=== PATIENT | female | born 1970 ===

== ENCOUNTER 2020-02-06 15:43 | Inpatient (IN) | payer OTHER ==
[2020-02-06] MEDS ORDERED: MORPHINE SULFATE 4 MG/ML SYRINGE IVP PRN (18:05)
[2020-02-06] MEDS: SODIUM CHLORIDE 0.9% 1,000 ML IV SCH (18:35)
[2020-02-06] MEDS: PIPERACILLIN-TAZOBACTAM 3.375 GM in SODIUM CHLORIDE 0.9% 100 ML IVPB SCH (19:02)
--- NOTE | 2020-02-06 19:04 | P.GSCN ---
History of Present Illness Consult date: 02/06/20 History of present illness: 49-year-old female that presents as a direct admission from an outside facility secondary to ruptured appendicitis. She states that she has had a right lower quadrant pain for 2 days and it has been worsening in nature. She complains of nausea and emesis episodes. She states she has never had pain like this previously. On workup at the outside facility, the patient did have a CT of the abdomen and pelvis that revealed a ruptured appendicitis. She denies having previous abdominal surgery. She does complain of febrile episodes. She has no additional complaints at this time. Review of Systems All systems: negative Medications and Allergies Allergies Allergy/AdvReac Type Severity Reaction Status Date / Time Penicillins Allergy Itching Verified 02/06/20 18:01 Surgical - Exam Osteopathic Statement: *. No significant issues noted on an osteopathic structural exam other than those noted in the History and Physical/Consult. Vital Signs Temp Pulse Resp BP Pulse Ox 100.8 F H 97 18 120/70 95 02/06/20 17:32 02/06/20 17:32 02/06/20 17:32 02/06/20 17:32 02/06/20 17:32 - General well nourished, no distress - Eyes PERRL - ENT normal mucosa, no hearing loss - Neck trachea midline - Respiratory No difficulty with respiration - Abdomen Soft, tender to palpation in the right lower quadrant, nondistended - Psychiatric oriented to time, oriented to person, oriented to place Assessment and Plan Plan: 49-year-old female with ruptured appendicitis - CT of the abdomen and pelvis that was performed at the outside facility was reviewed. It does appear that the patient has inflammatory changes and some pockets of air around the appendix, indicative of ruptured appendicitis. There did not appear to be a drainable abscess collection at this time. I did have a long discussion with the patient about surgical planning. Laparoscopic appendectomy will be attempted. The patient does understand that she is at high risk of requiring an open procedure. We will keep the patient nothing by mouth for now. IV antibiotics have started. Further recommendations after surgical procedure.
[2020-02-06] MEDS ORDERED: ACETAMINOPHEN TAB 325 MG TAB PO STA (19:38)
[2020-02-06] MEDS ORDERED: BUPIVACAIN-EPI 0.25%-1:200,000 30 ML VIAL SQ ONE (21:58)
[2020-02-06] MEDS ORDERED: LIDOCAINE 1% INJ 10MG/ML (20 ML MDV) ONE (21:59)
[2020-02-06] MEDS ORDERED: fentaNYL (PF) 50 MCG/ML 2 ML AMP ONE (21:59)
[2020-02-06] MEDS ORDERED: NEOSTIGMINE 1 MG/ML 10 ML VIAL ONE (21:59)
[2020-02-06] MEDS ORDERED: SUCCINYLCHOLINE CHLORIDE 100 MG/5 ML SYR IV ONE (21:59)
[2020-02-06] MEDS ORDERED: MIDAZOLAM 2 MG/2 ML VIAL ONE (21:59)
[2020-02-06] MEDS ORDERED: DEXAMETHASONE SOD PHOSPHATE 10 MG/ML 1 ML VIAL ONE (21:59)
[2020-02-06] MEDS ORDERED: HYDROmorphone (PF) 1 MG/ML ONE (21:59)
[2020-02-06] MEDS ORDERED: SODIUM CHLORIDE 0.9% 1,000 ML IV ONE (21:59)
[2020-02-06] MEDS ORDERED: ONDANSETRON 4 MG/2 ML VIAL ONE (21:59)
[2020-02-06] MEDS ORDERED: PROPOFOL 10 MG/ML 20 ML VIAL IV ONE (21:59)
[2020-02-06] MEDS ORDERED: PHENYLEPHRINE-0.9% NACL SYG 1 MG/10 ML SYRINGE ONE (21:59)
[2020-02-06] MEDS ORDERED: ROCURONIUM BROMIDE 10 MG/ML 5 ML VIAL IV ONE (21:59)
[2020-02-06] MEDS ORDERED: GLYCOPYRROLATE 0.2 MG/ML 2 ML VIAL ONE (21:59)
[2020-02-06] MEDS ORDERED: LACTATED RINGERS 1,000 ML IV ONE (23:12)
[2020-02-06] MEDS ORDERED: HYDROmorphone 0.5 MG/0.5 ML SYRINGE IVP PRN (23:32)
[2020-02-06] MEDS ORDERED: NALOXONE 0.4 MG/ML 1 ML VIAL IV PRN (23:32)
[2020-02-06] MEDS ORDERED: HYDROcodone/APAP 5-325MG 1 EACH TAB PO PRN (23:32)
[2020-02-06] MEDS ORDERED: ACETAMINOPHEN TAB 325 MG TAB PO PRN (23:41)
--- NOTE | 2020-02-06 23:41 | P.OP ---
Date of Procedure: 02/06/20 Preoperative Diagnosis: Ruptured appendicitis Postoperative Diagnosis: Ruptured appendicitis Procedure(s) Performed: Laparoscopic appendectomy Intra-abdominal washout Anesthesia: JOLLY Surgeon: Shimon Beltran Pathology: other (Appendix and contents) Condition: stable Disposition: floor Indications for Procedure: 49-year-old female presented to the hospital as a direct admission from an outside facility secondary to concern for ruptured appendicitis. Plan was for appendectomy secondary to this finding. Patient was explained the risks, benefits and alternatives to the procedure and did provide consent prior to attending the operating suite. Operative Findings: Ruptured appendix Purulent discharge throughout the abdomen, specifically in the pelvis, right lower quadrant and right upper quadrant Description of Procedure: The patient was brought into the operating suite and placed in supine position on the operating table. Sedation was provided by anesthesia and the patient underwent endotracheal intubation. Cuellar catheter was placed. The patient was prepped and draped in regular sterile fashion. An incision was made over the umbilicus at a palpable site of an umbilical hernia. Dissection was carried through the hernia site into the internal abdominal cavity. 12 mm port was placed and pneumoperitoneum was achieved. 2 additional 5 mm ports were placed. One was placed in the suprapubic region and one was placed in the left lower quadrant. On immediate examination, significant amount of purulent material was noted within the pelvis and in the right lower quadrant. The patient was then positioned appropriately. Dissection was carried and the appendix was visualized. It was densely adhered to surrounding structures and was bluntly dissected. The ruptured site of the appendix was noted at the proximal portion. Appendicolith was also noted as it had leaked out of the perforated site. A window was created between the appendix and the mesoappendix and LigaSure device was used to ligate the mesoappendix. Due to the proximal location of the rupture, further dissection was carried to be able to staple off the base of the appendix. 60 mm purple Endo CHEO stapler was used to ligate the appendix from the cecum. The appendix and the appendicolith were then placed in an Endo Catch bag and removed from the abdomen. Hemostasis was noted to be maintained. Approximately 5 L of normal saline was used to irrigate the entire abdomen and was suctioned. A MARTIN drain was then placed in the pelvis and along the right colic gutter and exited from the left lower quadrant incision site. This was secured. The umbilical incision site fascia was then closed under direct visualization using an 0 Vicryl suture and Callum-Miguel Angel device. Pneumoperitoneum was then released and incision sites were closed with 4-0 Vicryl subcutaneous suture. The patient was awakened in the operating suite and taken to postanesthesia care unit in stable condition.
[2020-02-07] MEDS: HEPARIN SODIUM,PORCINE 5,000 UNIT/ML 1 ML VIAL SQ SCH ×4 (00:34→23:00)
[2020-02-07] MEDS: KETOROLAC 30 MG/ML 1 ML VIAL IVP SCH ×5 (00:34→23:00)
[2020-02-07] MEDS: PIPERACILLIN-TAZOBACTAM 3.375 GM in SODIUM CHLORIDE 0.9% 100 ML IVPB SCH ×3 (02:52→18:42)
[2020-02-07] MEDS: SODIUM CHLORIDE 0.9% 1,000 ML IV SCH ×3 (02:53→23:00)
[2020-02-07] MEDS: PANTOPRAZOLE 40 MG/10 ML VIAL IV SCH (08:08)
--- NOTE | 2020-02-07 09:02 | P.PN ---
Subjective Progress Note Date: 02/07/20 Patient seen and examined at bedside. States she is feeling slightly better today. Tolerating clear liquid diet. Cuellar catheter in place. MARTIN drain in place. No acute events. Objective - Vital Signs Vital signs: Vital Signs Temp 97.9 F 02/07/20 07:00 Pulse 75 02/07/20 07:00 Resp 17 02/07/20 07:00 BP 107/68 02/07/20 07:00 Pulse Ox 96 02/07/20 06:00 Intake & Output 02/06/20 02/07/20 02/07/20 18:59 06:59 18:59 Intake Total 1000 Output Total 1149 40 Balance -149 -40 Weight 131.5 kg Intake: IV 800 Oral 200 Output: Drainage 130 40 Left Lower Abdomen 130 40 Urine 1000 Estimated Blood Loss 19 Other: Voiding Method Indwelling Catheter Indwelling Catheter - Constitutional General appearance: Present: cooperative, no acute distress - Respiratory Details: No difficulty with respiration - Gastrointestinal Gastrointestinal Comment(s): Soft, appropriate tenderness, nondistended, no rebound, guarding, incision sites are clean, dry and intact, MARTIN drain in place - Musculoskeletal Musculoskeletal: Present: generalized weakness - Psychiatric Psychiatric: Present: A&O x's 3 Assessment and Plan Plan: 49-year-old female postoperative day #1, laparoscopic appendectomy and intra- abdominal washout - Continue MARTIN drain. Currently purulent drainage is noted. 40 mL overnight. - Continue clear liquid diet - Discontinue Cuellar catheter - Increase activity - Incentive spirometry - Consult has been placed to infectious disease secondary to significant amount of purulence within the abdomen and ruptured appendicitis
[2020-02-07 09:03] LABS: Basophils % (A) 0 %; Eosinophils % (A) 0 %; HCT 36.1 % (34.0-46.0); HGB 12.2 gm/dL (11.4-16.0); Lymphocytes # (A) 0.6 k/uL (1.0-4.8); Lymphocytes % (A) 4 %; MCH 31.4 pg (25.0-35.0); MCHC 33.7 g/dL (31.0-37.0); MCV 93.2 fL (80.0-100.0); Mean Platelet Volume 7.2; Monocytes # (A) 0.4 k/uL (0-1.0); Monocytes % (A) 3 %; Neutrophils # (A) 14.5 k/uL (1.3-7.7); Neutrophils % (A) 92 %; Platelet Count 242 k/uL (150-450); RBC 3.87 m/uL (3.80-5.40); RDW 12.8 % (11.5-15.5); WBC 15.7 k/uL (3.8-10.6)
[2020-02-07 09:11] LABS: ALT 11 U/L (4-34); AST 17 U/L (14-36); African American GFR (CKD) >90 (>60 ml/min/1.73 sqM); Albumin 3.4 g/dL (3.5-5.0); Alkaline Phosphatase 38 U/L (38-126); Anion Gap 8 mmol/L; Blood Urea Nitrogen 16 mg/dL (7-17); Calcium 7.9 mg/dL (8.4-10.2); Carbon Dioxide 24 mmol/L (22-30); Chloride 102 mmol/L (98-107); Glucose 140 mg/dL (74-99); Non-African American GFR(CKD) 79 (>60 ml/min/1.73 sqM); Potassium 3.9 mmol/L (3.5-5.1); Sodium 134 mmol/L (137-145); Total Bilirubin 0.6 mg/dL (0.2-1.3); Total Protein 6.4 g/dL (6.3-8.2)
[2020-02-07] MEDS: ONDANSETRON 4 MG/2 ML VIAL IVP PRN ×2 (09:41→16:31)
[2020-02-07] MEDS ORDERED: TRIMETHOBENZAMIDE 100 MG/ML 2 ML VIAL IM STA (13:55)
--- NOTE | 2020-02-07 18:10 | P.HPIM ---
History of Present Illness H&P Date: 02/06/20 Chief Complaint: Abdominal pain Patient is a 49-year-old female without significant past medical history initially presented to [facility] with complaints of abdominal pain started since Sunday and has been getting worse. Abdominal pain is mainly right lower quadrant assist with nausea and vomiting. Due to worsening abdominal pain patient initially presented to [facility] where she had CT of the abdominal pelvis was done which showed ruptured appendicitis without any fluid collection surrounding. Patient was transferred to [facility] for general surgery evaluation. Patient was febrile with T-max of 100.8 and tachycardic. Laboratory data and other studies reviewed from outside hospital. Denied any complaints of chest pain or shortness of breath. No headache or dizziness or lightheadedness. No recent illnesses no diarrhea. No recent travel. Review of Systems Constitutional: Patient denies any fever or chills . No generalized weakness or weight loss. Abdomen: Patient does have right lower quadrant abdominal pain is with nausea vomiting and no diarrhea.. Cardiovascular: Patient denies any chest pain or short of breath no palpitations. Respiratory: patient denied any cough is from production. No shortness of breath Neurologic: Patient denied any numbness or tingling headache. Musculoskeletal: Patient denies any complaints of joint swelling or deformity. Skin: Negative Psychiatric: Negative Endocrine: No heat or cold intolerance. No recent weight gain. Genitourinary: No dysuria or hematuria. All other 14 point ROS negative except the above Past Medical History Past Medical History: No Reported History History of Any Multi-Drug Resistant Organisms: None Reported Additional Past Surgical History / Comment(s): right askew carpal tunnel Past Anesthesia/Blood Transfusion Reactions: No Reported Reaction Past Psychological History: No Psychological Hx Reported Smoking Status: Never smoker Medications and Allergies Home Medications Medication Instructions Recorded Confirmed Type No Known Home Medications 02/06/20 02/06/20 History Allergies Allergy/AdvReac Type Severity Reaction Status Date / Time Penicillins Allergy Itching Verified 02/06/20 18:01 Physical Exam Vitals: Vital Signs Temp Pulse Pulse Resp BP BP Pulse Ox 02/06/20 19:30 100.4 F H 106 H 20 104/63 94 L 02/06/20 17:32 100.8 F H 97 18 120/70 95 Intake and Output 02/06/20 02/06/20 02/07/20 14:59 22:59 06:59 Other: Weight 131.5 kg PHYSICAL EXAMINATION: Patient is lying in the bed comfortably, no acute distress, awake alert and oriented.. HEENT: Normocephalic. Neck is supple. Pupils reactive. Nostrils clear. Oral cavity is moist. Ears reveal no drainage. Neck reveals no JVD, carotid bruits, or thyromegaly. CHEST EXAMINATION: Trachea is central. Symmetrical expansion. Lung cruz clear to auscultation and percussion. CARDIAC: Normal S1, S2 with no gallops. No murmurs ABDOMEN: Soft. Right lower quadrant tenderness. No guarding no rigidity. Bowel sounds present. No organomegaly. No abdominal bruits. Extremities: reveal no edema. No clubbing or cyanosis Neurologically awake, alert, oriented x3 with well-coordinated movements. No focal deficits noted Skin: No rash or skin lesions. Psychiatric: Coperative. Nonsuicidal Musculoskeletal: No joint swelling or deformity. Normal range of motion. Results CBC & Chem 7: 02/07/20 07:57 02/07/20 07:57 Thrombosis Risk Factor Assmnt - DVT/VTE Prophylaxis DVT/VTE Prophylaxis: Pharmacologic Prophylaxis ordered - Choose All That Apply Any of the Below Risk Factors Present?: No Assessment and Plan Assessment: Acute appendicitis ruptured with possible surrounding peritonitis. Sepsis secondary to above Morbid obesity BMI 46.8 DVT prophylaxis. Plan: Patient will be continued on IV hydration and antibiotics in the form of Zosyn. Stat consult to Gen. surgery was placed. Continue pain management and follow closely. Further recommendations based on the clinical course. Time with Patient: Greater than 30
--- NOTE | 2020-02-07 18:13 | P.PN ---
Subjective Progress Note Date: 02/07/20 Principal diagnosis: Acute ruptured appendicitis Patient is a 49-year-old female without significant past medical history initially presented to [facility] with complaints of abdominal pain started since Sunday and has been getting worse. Abdominal pain is mainly r ight lower quadrant assist with nausea and vomiting. Due to worsening abdominal pain patient initially presented to [facility] where she had CT of the abdominal pelvis was done which showed ruptured appendicitis without any fluid collection surrounding. Patient was transferred to [facility] for general surgery evaluation. Patient was febrile with T-max of 100.8 and tachyc ardic. Laboratory data and other studies reviewed from outside hospital. Denied any complaints of chest pain or shortness of breath. No headache or dizziness or lightheadedness. No recent illnesses no diarrhea. No recent travel. 02/07/2020 Patient is currently lying in the bed comfortably. Abdominal pain is much improved. Tolerating clear liquids. Patient has been afebrile. WBC 15.7 today. General surgery is on board. Patient denied any complaints of chest pain or shortness of breath. No nausea vomiting or diarrhea. No headache or dizziness or lightheadedness. No cough or sputum production. Current medications reviewed. Objective - Vital Signs Vital signs: Vital Signs Temp 97.9 F 02/07/20 14:43 Pulse 85 02/07/20 14:43 Resp 19 02/07/20 14:43 BP 109/72 02/07/20 14:43 Pulse Ox 95 02/07/20 14:43 Intake & Output 02/06/20 02/07/20 02/07/20 18:59 06:59 18:59 Intake Total 1000 Output Total 1149 420 Balance -149 -420 Weight 131.5 kg Intake: IV 800 Oral 200 Output: Drainage 130 120 Left Lower Abdomen 130 120 Urine 1000 Emesis 300 Estimated Blood Loss 19 Other: Voiding Method Indwelling Catheter Indwelling Catheter # Voids 0 - Exam PHYSICAL EXAMINATION: Patient is lying in the bed comfortably, no acute distress, awake alert and oriented.. HEENT: Normocephalic. Neck is supple. Pupils reactive. Nostrils clear. Oral cavity is moist. Ears reveal no drainage. Neck reveals no JVD, carotid bruits, or thyromegaly. CHEST EXAMINATION: Trachea is central. Symmetrical expansion. Bibasilar diminished air entry. Lung cruz clear to auscultation and percussion. CARDIAC: Normal S1, S2 with no gallops. No murmurs ABDOMEN: Soft. Mild tenderness of the surgical site. Bowel sounds normal. No organomegaly. No abdominal bruits. Extremities: reveal no edema. No clubbing or cyanosis Neurologically awake, alert, oriented x3 with well-coordinated movements. No focal deficits noted Skin: No rash or skin lesions. Psychiatric: Coperative. Nonsuicidal Musculoskeletal: No joint swelling or deformity. Normal range of motion. - Labs CBC & Chem 7: 02/07/20 07:57 02/07/20 07:57 Labs: Abnormal Lab Results - Last 24 Hours (Table) 02/07/20 02/07/20 Range/Units 07:57 07:57 WBC 15.7 H (3.8-10.6) k/uL Neutrophils # 14.5 H (1.3-7.7) k/uL Lymphocytes # 0.6 L (1.0-4.8) k/uL Sodium 134 L (137-145) mmol/L Glucose 140 H (74-99) mg/dL Calcium 7.9 L (8.4-10.2) mg/dL Albumin 3.4 L (3.5-5.0) g/dL Assessment and Plan Assessment: Acute appendicitis ruptured status post emergent laparoscopic appendectomy and intraoperative or short period. . POD# 1. Sepsis secondary to above Morbid obesity BMI 46.8 DVT prophylaxis. Plan: Patient will be continued on IV hydration and antibiotics in the form of Zosy Patient was started on liquid diet and advance as tolerated. General surgery is following. Follow-up culture reports. ID consult. Encourage ambulation and incentive spirometry. Continue pain management and follow closely. Further recommendations based on the clinical course. Time with Patient: Greater than 30
--- NOTE | 2020-02-08 01:36 | P.CONS ---
History of Present Illness - Reason for Consult Consult date: 02/07/20 Ruptured appendicitis Requesting physician: Shimon Beltran - Chief Complaint Abdominal pain 2 days - History of Present Illness Patient is a 49-year-old female presented to the [facility] with a chief complaints of abdominal pain. His urination that started on Sunday patient did have been mostly in the right lower quadrant area patient describing the pain to be more of a sharp nature that has gradually increased in intensity and almost 10 out of 10 with Gertrude nausea and vomiting denies any diarrhea or constipation did have some fever with these symptoms the patient was evaluated outside facility patient had did have a CT of abdominal and pelvis,that was suggestive of ruptured appendicitis subsequently the patient has been transferred to [facility], on arrival to this facility the patient did have a fever 100.8F patient was tachycardic did have elevated white count, general surgery saw the patient and the patient was taken to the OR last night patient is status post laparoscopic appendectomy and abdominal washou t unfortunately no cultures and the patient was started on Zosyn . Currently the patient did have penicillin ALLERGY however has tolerated so far and infectious disease was consulted for further management of antibiotic therapy Review of Systems Positive point has been mentioned in the HPI rest of the systems are negative Past Medical History Past Medical History: No Reported History History of Any Multi-Drug Resistant Organisms: None Reported Additional Past Surgical History / Comment(s): right askew carpal tunnel Past Anesthesia/Blood Transfusion Reactions: No Reported Reaction Past Psychological History: No Psychological Hx Reported Smoking Status: Never smoker Medications and Allergies Home Medications Medication Instructions Recorded Confirmed Type No Known Home Medications 02/06/20 02/06/20 History Allergies Allergy/AdvReac Type Severity Reaction Status Date / Time Penicillins Allergy Itching Verified 02/06/20 18:01 Physical Exam Vitals: Vital Signs Temp Pulse Pulse Pulse Resp BP BP 02/07/20 07:00 97.9 F 75 17 107/68 02/07/20 06:00 98.1 F 78 20 99/58 02/07/20 04:17 97.7 F 80 20 109/61 02/07/20 02:00 97.8 F 81 20 99/61 02/07/20 00:25 98.5 F 84 20 115/69 02/07/20 00:16 78 16 110/58 02/07/20 00:00 76 16 107/57 02/06/20 23:45 75 16 114/57 02/06/20 23:35 98.2 F 79 16 120/57 02/06/20 19:30 100.4 F H 106 H 20 104/63 02/06/20 17:32 100.8 F H 97 18 120/70 Pulse Ox 02/07/20 07:00 02/07/20 06:00 96 02/07/20 04:17 98 02/07/20 02:00 96 02/07/20 00:25 94 L 02/07/20 00:16 93 L 02/07/20 00:00 99 02/06/20 23:45 99 02/06/20 23:35 93 L 02/06/20 19:30 94 L 02/06/20 17:32 95 Intake and Output 02/06/20 02/07/20 02/07/20 22:59 06:59 14:59 Intake Total 700 300 Output Total 1149 40 Balance 700 -849 -40 Intake: IV 700 100 Oral 200 Output: Drainage 130 40 Left Lower Abdomen 130 40 Urine 1000 Estimated Blood Loss 19 Other: Voiding Method Indwelling Catheter Indwelling Catheter Weight 131.5 kg GENERAL DESCRIPTION: Middle-aged female lying in bed, no distress. No tachypnea or accessory muscle of respiration use. HEENT: Shows Pallor , no scleral icterus. Oral mucous membrane is dry. No pharyn geal erythema or thrush NECK: Trachea central, no thyromegaly. LUNGS: Unlabored breathing. Clear to auscultation anteriorly. No wheeze or crackle. HEART: S1, S2, regular rate and rhythm. No loud murmur ABDOMEN: Soft, mild right lower quadrant tenderness , guarding or rigidity, no organomegaly EXTREMITIES: No edema of feet. SKIN: No rash, no masses palpable. NEUROLOGICAL: The patient is awake, alert, oriented x3, mood and affect normal. Results CBC & Chem 7: 02/07/20 07:57 02/07/20 07:57 Labs: Abnormal Lab Results - Last 24 Hours (Table) 02/07/20 02/07/20 Range/Units 07:57 07:57 WBC 15.7 H (3.8-10.6) k/uL Neutrophils # 14.5 H (1.3-7.7) k/uL Lymphocytes # 0.6 L (1.0-4.8) k/uL Sodium 134 L (137-145) mmol/L Glucose 140 H (74-99) mg/dL Calcium 7.9 L (8.4-10.2) mg/dL Albumin 3.4 L (3.5-5.0) g/dL Assessment and Plan Assessment: 1-patient presented to hospital with sepsis this patient who did have fever tachycardia and elevated white count source is ruptured appendicitis in this patient who has not been on antibiotics in the recent past. The likely sensitive pathogen such as E. coli and related gram-negative thomas 2-patient with a history of penicillin ALLERGY however has tolerated Zosyn without any problems, clinically doubt true penicillin ALLERGY (1) Sepsis Current Visit: Yes Status: Acute Code(s): A41.9 - SEPSIS, UNSPECIFIED ORGANISM SNOMED Code(s): 53291689 (2) Ruptured appendicitis Current Visit: Yes Status: Acute Code(s): K35.32 - ACUTE APPENDICITIS WITH PERF AND LOC PERITONITIS, W/O ABSCS SNOMED Code(s): 89514879 Plan: 1-Zosyn 3.375 g every 8 hour 2-gentle IV fluids and symptomatic treatment of her nausea and pain We will follow on clinical condition and cultures to further adjust medication if needed Thank you for this consultation will follow this patient with you Time with Patient: Greater than 30
[2020-02-08] MEDS: PIPERACILLIN-TAZOBACTAM 3.375 GM in SODIUM CHLORIDE 0.9% 100 ML IVPB SCH ×3 (02:44→18:04)
[2020-02-08] MEDS: KETOROLAC 30 MG/ML 1 ML VIAL IVP SCH ×4 (05:14→23:23)
[2020-02-08 07:44] LABS: Basophils % (A) 0 %; Eosinophils # (A) 0.1 k/uL (0-0.7); Eosinophils % (A) 1 %; HCT 30.9 % (34.0-46.0); HGB 10.2 gm/dL (11.4-16.0); Lymphocytes # (A) 0.9 k/uL (1.0-4.8); Lymphocytes % (A) 10 %; MCH 30.8 pg (25.0-35.0); MCHC 33.2 g/dL (31.0-37.0); Mean Platelet Volume 7.1; Monocytes # (A) 0.3 k/uL (0-1.0); Monocytes % (A) 4 %; Neutrophils # (A) 7.1 k/uL (1.3-7.7); Neutrophils % (A) 84 %; Platelet Count 215 k/uL (150-450); RBC 3.32 m/uL (3.80-5.40); RDW 12.8 % (11.5-15.5); WBC 8.5 k/uL (3.8-10.6)
[2020-02-08 08:12] LABS: African American GFR (CKD) >90 (>60 ml/min/1.73 sqM); Anion Gap 5 mmol/L; Blood Urea Nitrogen 13 mg/dL (7-17); Calcium 7.7 mg/dL (8.4-10.2); Carbon Dioxide 24 mmol/L (22-30); Chloride 109 mmol/L (98-107); Glucose 122 mg/dL (74-99); Non-African American GFR(CKD) 90 (>60 ml/min/1.73 sqM); Potassium 3.7 mmol/L (3.5-5.1); Sodium 138 mmol/L (137-145)
--- NOTE | 2020-02-08 08:34 | P.PN ---
Subjective Progress Note Date: 02/08/20 Patient seen and examined at bedside. States she is feeling better today. Complains of one episode of emesis yesterday, which she believes was secondary to narcotic pain medication. She states that she has had bowel movements and flatus. MARTIN drain in place with continued purulent output. Objective - Vital Signs Vital signs: Vital Signs Temp 98.6 F 02/08/20 02:06 Pulse 81 02/08/20 02:06 Resp 18 02/08/20 02:06 BP 108/69 02/08/20 02:06 Pulse Ox 95 02/08/20 02:06 Intake & Output 02/07/20 02/08/20 02/08/20 18:59 06:59 18:59 Output Total 420 80 Balance -420 -80 Output: Drainage 120 80 Left Lower Abdomen 120 80 Emesis 300 Other: Voiding Method Indwelling Catheter # Voids 0 5 - Constitutional General appearance: Present: cooperative, no acute distress - EENT Eyes: Present: PERRLA - Gastrointestinal Gastrointestinal Comment(s): Soft, appropriate tenderness, nondistended, no rebound, no guarding, incision sites are clean, dry and intact, MARTIN drain in place with purulent output - Musculoskeletal Musculoskeletal: Present: generalized weakness - Psychiatric Psychiatric: Present: A&O x's 3 - Labs CBC & Chem 7: 02/08/20 07:13 02/08/20 07:13 Labs: Abnormal Lab Results - Last 24 Hours (Table) 02/07/20 02/07/20 02/08/20 Range/Units 07:57 07:57 07:13 WBC 15.7 H (3.8-10.6) k/uL RBC 3.32 L (3.80-5.40) m/uL Hgb 10.2 L (11.4-16.0) gm/dL Hct 30.9 L (34.0-46.0) % Neutrophils # 14.5 H (1.3-7.7) k/uL Lymphocytes # 0.6 L 0.9 L (1.0-4.8) k/uL Sodium 134 L (137-145) mmol/L Chloride (98-107) mmol/L Glucose 140 H (74-99) mg/dL Calcium 7.9 L (8.4-10.2) mg/dL Albumin 3.4 L (3.5-5.0) g/dL 02/08/20 Range/Units 07:13 WBC (3.8-10.6) k/uL RBC (3.80-5.40) m/uL Hgb (11.4-16.0) gm/dL Hct (34.0-46.0) % Neutrophils # (1.3-7.7) k/uL Lymphocytes # (1.0-4.8) k/uL Sodium (137-145) mmol/L Chloride 109 H (98-107) mmol/L Glucose 122 H (74-99) mg/dL Calcium 7.7 L (8.4-10.2) mg/dL Albumin (3.5-5.0) g/dL Assessment and Plan Plan: 49-year-old female postoperative day #2, laparoscopic appendectomy and intra-abd ominal washout - Continue MARTIN drain. Currently purulent drainage is noted. 80 mL overnight. - Patient has had bowel function, we will advance to a soft diet - Increase activity - Incentive spirometry - Continue antibiotics per infectious disease - Progressing slowly
[2020-02-08] MEDS: HEPARIN SODIUM,PORCINE 5,000 UNIT/ML 1 ML VIAL SQ SCH ×3 (09:14→23:24)
[2020-02-08] MEDS: SODIUM CHLORIDE 0.9% 1,000 ML IV SCH ×2 (09:14→23:23)
[2020-02-08] MEDS: PANTOPRAZOLE 40 MG/10 ML VIAL IV SCH (09:14)
--- NOTE | 2020-02-09 01:24 | P.PN ---
Subjective Progress Note Date: 02/08/20 Principal diagnosis: Acute ruptured appendicitis Patient is a 49-year-old female without significant past medical history initially presented to [facility] with complaints of abdominal pain started since Sunday and has been getting worse. Abdominal pain is mainly r ight lower quadrant assist with nausea and vomiting. Due to worsening abdominal pain patient initially presented to [facility] where she had CT of the abdominal pelvis was done which showed ruptured appendicitis without any fluid collection surrounding. Patient was transferred to [facility] for general surgery evaluation. Patient was febrile with T-max of 100.8 and tachyc ardic. Laboratory data and other studies reviewed from outside hospital. Denied any complaints of chest pain or shortness of breath. No headache or dizziness or lightheadedness. No recent illnesses no diarrhea. No recent travel. 02/07/2020 Patient is currently lying in the bed comfortably. Abdominal pain is much improved. Tolerating clear liquids. Patient has been afebrile. WBC 15.7 today. General surgery is on board. Patient denied any complaints of chest pain or shortness of breath. No nausea vomiting or diarrhea. No headache or dizziness or lightheadedness. No cough or sputum production. 02/08/2020 Patient is status post laparoscopic appendectomy due to ruptured appendix. Patient is currently sitting in the chair comfortably. No complaints of chest pain. Abdominal pain is better. MARTIN drain is still draining purulent fluid. Currently being continued on antibiotics in the form of Zosyn.. Patient was started on liquid diet and will be advanced as tolerated. General surgery and ID is on board. Patient has been afebrile. Leukocytosis improving. Current medications reviewed. Objective - Vital Signs Vital signs: Vital Signs Temp 97.8 F 02/08/20 07:00 Pulse 71 02/08/20 07:00 Resp 16 02/08/20 07:00 BP 113/71 02/08/20 07:00 Pulse Ox 96 02/08/20 07:00 Intake & Output 02/07/20 02/08/20 02/08/20 18:59 06:59 18:59 Output Total 420 80 Balance -420 -80 Output: Drainage 120 80 Left Lower Abdomen 120 80 Emesis 300 Other: Voiding Method Indwelling Catheter # Voids 0 5 - Exam PHYSICAL EXAMINATION: Patient is lying in the bed comfortably, no acute distress, awake alert and oriented.. HEENT: Normocephalic. Neck is supple. Pupils reactive. Nostrils clear. Oral cavity is moist. Ears reveal no drainage. Neck reveals no JVD, carotid bruits, or thyromegaly. CHEST EXAMINATION: Trachea is central. Symmetrical expansion. Bibasilar diminished air entry. Lung cruz clear to auscultation and percussion. CARDIAC: Normal S1, S2 with no gallops. No murmurs ABDOMEN: Soft. Mild tenderness of the surgical site. Bowel sounds normal. No organomegaly. No abdominal bruits. Extremities: reveal no edema. No clubbing or cyanosis Neurologically awake, alert, oriented x3 with well-coordinated movements. No focal deficits noted Skin: No rash or skin lesions. Psychiatric: Coperative. Nonsuicidal Musculoskeletal: No joint swelling or deformity. Normal range of motion. - Labs CBC & Chem 7: 02/08/20 07:13 02/08/20 07:13 Labs: Abnormal Lab Results - Last 24 Hours (Table) 02/08/20 02/08/20 Range/Units 07:13 07:13 RBC 3.32 L (3.80-5.40) m/uL Hgb 10.2 L (11.4-16.0) gm/dL Hct 30.9 L (34.0-46.0) % Lymphocytes # 0.9 L (1.0-4.8) k/uL Chloride 109 H (98-107) mmol/L Glucose 122 H (74-99) mg/dL Calcium 7.7 L (8.4-10.2) mg/dL Assessment and Plan Assessment: Acute appendicitis ruptured status post emergent laparoscopic appendectomy and intraoperative Washout. . POD# 2. Possible surrounding peritonitis. Sepsis secondary to above Morbid obesity BMI 46.8 DVT prophylaxis. Plan: Patient will be continued on IV hydration and antibiotics in the form of Zosy Patient was started on liquid diet and advance as tolerated. General surgery is following. Follow-up culture reports. ID on board. Encourage ambulation and incentive spirometry. Continue pain management and follow closely. Further recommendations based on the clinical course.
[2020-02-09] MEDS: PIPERACILLIN-TAZOBACTAM 3.375 GM in SODIUM CHLORIDE 0.9% 100 ML IVPB SCH ×3 (03:01→19:10)
[2020-02-09] MEDS: KETOROLAC 30 MG/ML 1 ML VIAL IVP SCH ×3 (05:49→18:01)
--- NOTE | 2020-02-09 06:43 | PN ---
PROGRESS NOTE DATE OF SERVICE: 02/08/2020 REASON FOR FOLLOWUP: Perforated appendicitis. INTERVAL HISTORY: Patient is currently afebrile. The patient is breathing comfortably. The patient denies having any chest pain or shortness of breath or cough. No further nausea, vomiting or diarrhea. PHYSICAL EXAMINATION: Blood pressure 114/76, pulse of 81, temperature 98.6. She is 98% on room air. General description is a middle-aged female lying in bed in no distress. RESPIRATORY SYSTEM: Unlabored breathing, clear to auscultation anteriorly. HEART: S1, S2. Regular rate and rhythm. ABDOMEN: Soft, no tenderness. LABS: Hemoglobin is 10.2, white count 8.5, creatinine 0.78. No cultures this admission. DIAGNOSTIC IMPRESSION AND PLAN: Patient with perforated appendicitis, status post appendectomy and abdominal washout. The patient white count normalized. Currently on Zosyn. Transition to oral Augmentin on discharge to finish a course of therapy and monitor clinical course closely. MMODL / IJN: [id number] /
[2020-02-09] MEDS: HEPARIN SODIUM,PORCINE 5,000 UNIT/ML 1 ML VIAL SQ SCH ×2 (07:23→16:36)
[2020-02-09] MEDS: PANTOPRAZOLE 40 MG/10 ML VIAL IV SCH (07:23)
[2020-02-09] MEDS: SODIUM CHLORIDE 0.9% 1,000 ML IV SCH (07:24)
--- NOTE | 2020-02-09 08:56 | P.PN ---
Subjective From records: Patient is a 49-year-old female without significant past medical history initially presented to [facility] with complaints of abdominal pain started since Sunday and has been getting worse. Abdominal pain is mainly right lower quadrant assist with nausea and vomiting. Due to worsening abdominal pain patient initially presented to [facility] where she had CT of the abdominal pelvis was done which showed ruptured appendicitis without any fluid collection surrounding. Patient was transferred to [facility] for general surgery evaluation. Patient was febrile with T-max of 100.8 and tachycardic. Laboratory data and other studies reviewed from outside hospital. Denied any complaints of chest pain or shortness of breath. No headache or dizziness or lightheadedness. No recent illnesses no diarrhea. No recent travel. 02/07/2020 Patient is currently lying in the bed comfortably. Abdominal pain is much improved. Tolerating clear liquids. Patient has been afebrile. WBC 15.7 today. General surgery is on board. Patient denied any complaints of chest pain or shortness of breath. No nausea vomiting or diarrhea. No headache or dizziness or lightheadedness. No cough or sputum production. 02/08/2020 Patient is status post laparoscopic appendectomy due to ruptured appendix. Patient is currently sitting in the chair comfortably. No complaints of chest pain. Abdominal pain is better. MARTIN drain is still draining purulent fluid. Currently being continued on antibiotics in the form of Zosyn.. Patient was started on liquid diet and will be advanced as tolerated. General surgery and ID is on board. Patient has been afebrile. Leukocytosis improving. Subjective 02/09/2020 This is a pleasant 49 years old female who presented on 02/05 for signs and symptoms of ruptured appendicitis status post laparoscopic appendectomy. Patient lying in bed not in distress, she is able to tolerate her solid diet with no nausea vomiting, her abdominal pain is controlled and she had some bowel movement this morning, it was loose. She still have the drain was cleared lit tle pinkish discharge of a direct amount. She sees Dr. Rodriguez at [facility] but she is not happy with her and she wants to switch her PCP Possible discharge in 24-48 hours by surgical team Objective - Vital Signs Vital signs: Vital Signs Temp 98.9 F 02/09/20 07:05 Pulse 74 02/09/20 07:05 Resp 17 06/22/20 07:05 BP 139/88 02/09/20 07:05 Pulse Ox 95 02/09/20 07:05 Intake & Output 02/08/20 02/09/20 02/09/20 18:59 06:59 18:59 Output Total 20 30 Balance -20 -30 Output: Drainage 20 30 Left Lower Abdomen 20 30 Other: # Voids 3 4 # Bowel Movements 2 - Exam GENERAL: The patient is alert and oriented x3, not in any acute distress. Well developed, well nourished. HEENT: Pupils are round and equally reacting to light. EOMI. No scleral icterus. No conjunctival pallor. Normocephalic, atraumatic. No pharyngeal erythema. No thyromegaly. CARDIOVASCULAR: S1 and S2 present. No murmurs, rubs, or gallops. PULMONARY: Chest is clear to auscultation, no wheezing or crackles. -ABDOMEN: Soft, nontender, nondistended, normoactive bowel sounds. No palpable organomegaly. Surgical wound is clean and dry. A drain is in place MUSCULOSKELETAL: No joint swelling or deformity. EXTREMITIES: No cyanosis, clubbing, or pedal edema. NEUROLOGICAL: Gross neurological examination did not reveal any focal deficits. SKIN: No rashes. no petechiae. - Labs CBC & Chem 7: 02/08/20 07:13 02/08/20 07:13 Assessment and Plan Assessment: Acute appendicitis ruptured status post emergent laparoscopic appendectomy and intraoperative Washout. . POD# 3. Possible surrounding peritonitis. Sepsis secondary to above Morbid obesity BMI 46.8 DVT prophylaxis. Plan: This is a pleasant 49 years old female who presents with ruptured appendix is status post surgical laparoscopic appendectomy. She remains on Zosyn and normal saline. Infectious disease on the case. Pain management and DVT prophylaxis. Surgical team Labs and medication were reviewed.. Continue same treatment. Continue with symptomatic treatment. Resume home medication. Monitor lytes and vitals. DVT and GI prophylaxis. Further recommendations of the clinical course of the patient DVT prophylaxis: Subcutaneous heparin GI Prophylaxis: Ppi Thank you for consulting us
--- NOTE | 2020-02-09 10:57 | P.PN ---
Subjective Progress Note Date: 02/09/20 Patient seen and examined at bedside. States she is feeling better today. Drainage from MARTIN drain was 80 cc overnight. It appears that drainage is much less purulent and more serosanguineous. Tolerating diet. Having bowel movements. Objective - Vital Signs Vital signs: Vital Signs Temp 98.9 F 02/09/20 07:05 Pulse 74 02/09/20 07:05 Resp 17 02/09/20 07:05 BP 139/88 02/09/20 07:05 Pulse Ox 95 02/09/20 07:05 Intake & Output 02/08/20 02/09/20 02/09/20 18:59 06:59 18:59 Output Total 20 30 45 Balance -20 -30 -45 Output: Drainage 20 30 45 Left Lower Abdomen 20 30 45 Other: # Voids 3 4 # Bowel Movements 2 - Constitutional General appearance: Present: cooperative, no acute distress - Gastrointestinal Gastrointestinal Comment(s): Incision sites are clean, dry and intact, MARTIN drain in place, nontender, nondistended, no rebound, no guarding - Psychiatric Psychiatric: Present: A&O x's 3 - Labs CBC & Chem 7: 02/08/20 07:13 02/08/20 07:13 Assessment and Plan Plan: 49-year-old female postoperative day #3, laparoscopic appendectomy and intra- abdominal washout - Continue MARTIN drain. 80 mL overnight. Much less purulent - Continue a soft diet - Increase activity - Incentive spirometry - Continue antibiotics per infectious disease - Progressing slowly - Likely discharge in 24 hours
--- NOTE | 2020-02-09 23:58 | PN ---
PROGRESS NOTE DATE OF SERVICE: 02/09/2020 REASON FOR FOLLOWUP: Perforated appendicitis. INTERVAL HISTORY: The patient is currently afebrile. Patient is breathing comfortably. Abdominal pain is currently controlled. No chest pain, shortness of breath or cough. No diarrhea. PHYSICAL EXAMINATION: Blood pressure 159/80 with a pulse of 79, temperature 97.5. She is 98% on room air. General description is a middle-aged female up in the chair in no distress. RESPIRATORY SYSTEM: Unlabored breathing, clear to auscultation anteriorly. HEART: S1, S2. Regular rate and rhythm. ABDOMEN: Soft, no tenderness. LABS: No new labs have been obtained today. White count normal as of yesterday. DIAGNOSTIC IMPRESSION AND PLAN: Patient with perforated appendicitis, status post appendectomy, abdominal washout. The patient seemed to have shown overall clinical improvement. Plan will be to finish therapy with antibiotic. Continue with Zosyn. Continue with supportive care. MMODL / IJN: [id number] /
[2020-02-10] MEDS: KETOROLAC 30 MG/ML 1 ML VIAL IVP SCH ×3 (00:11→11:30)
[2020-02-10] MEDS: HEPARIN SODIUM,PORCINE 5,000 UNIT/ML 1 ML VIAL SQ SCH ×2 (00:12→10:12)
[2020-02-10] MEDS: PIPERACILLIN-TAZOBACTAM 3.375 GM in SODIUM CHLORIDE 0.9% 100 ML IVPB SCH ×2 (03:18→11:33)
[2020-02-10 09:55] VITALS: BP 142/88; PULSE 70; RESP 16; TEMP 98.3
[2020-02-10] MEDS: PANTOPRAZOLE 40 MG/10 ML VIAL IV SCH (10:12)
--- NOTE | 2020-02-10 12:34 | P.PN ---
Subjective Progress Note Date: 02/10/20 Patient seen and examined at bedside. States that she is feeling much better. Denies any abdominal pain. Tolerating diet. Objective - Vital Signs Vital signs: Vital Signs Temp 98.3 F 02/10/20 08:43 Pulse 70 02/10/20 08:43 Resp 16 02/10/20 08:43 BP 142/88 02/10/20 08:43 Pulse Ox 96 02/10/20 08:43 Intake & Output 02/09/20 02/10/20 02/10/20 18:59 06:59 18:59 Intake Total 2300 1600 Output Total 125 40 80 Balance 2175 1560 -80 Intake: Intake, IV Titration 300 1100 Amount Piperacillin-Tazobactam 3 100 .375 gm In Sodium Chloride 0.9% 100 ml @ 25 mls/hr IVPB Q8H LAURO Rx#: [id number] Sodium Chloride 0.9% 1, 300 1000 000 ml @ 100 mls/hr IV . Q10H LAURO Rx#:[id number] Oral 2000 500 Output: Drainage 125 40 80 Left Lower Abdomen 125 40 80 Other: # Voids 2 1 # Bowel Movements 2 - Constitutional General appearance: Present: cooperative, no acute distress - Respiratory Details: No difficulty with respiration - Gastrointestinal Gastrointestinal Comment(s): Soft, appropriate tenderness, nondistended, no rebound, no guarding, incision sites are clean, dry and intact, MARTIN drain in place with serous output - Psychiatric Psychiatric: Present: A&O x's 3 - Labs CBC & Chem 7: 02/08/20 07:13 02/08/20 07:13 Assessment and Plan Plan: 49-year-old female postoperative day #4, laparoscopic appendectomy and intra- abdominal washout - Patient is surgically stable for discharge. Due to continued output from MARTIN drain of approximately 80 mL per day, I did recommend continuing the MARTIN drain as an outpatient. She will receive instructions on MARTIN drain care. We'll remove this in the outpatient setting in the office. The patient is agreeable to this plan. - Continue a soft diet - Increase activity - Incentive spirometry - Oral antibiotics on discharge, per infectious disease
--- NOTE | 2020-02-10 14:04 | P.DS ---
Providers Date of admission: 02/06/20 17:28 Attending physician: Karis Merrill Consults: 02/06/20 18:02 Consult Physician Stat Consulting Provider: Shimon Abernathy Consult Reason/Comments: ruptured appendix Do you want consulting provider notified?: Already Contacted Placement Type Exists?: Yes 02/07/20 08:57 Consult Physician Routine Consulting Provider: Lalitha Stone Consult Reason/Comments: Ruptured Appendicitis Do you want consulting provider notified?: Yes Primary care physician: [facility] Hospital Course: Diagnoses: Acute appendicitis ruptured status post emergent laparoscopic appendectomy and intraoperative Washout. . POD# 3. Possible surrounding peritonitis. Sepsis secondary to above Morbid obesity BMI 46.8 Hospital course: Patient is a 49-year-old female without significant past medical history initially presented to [facility] with complaints of abdominal pain , CT of the abdominal pelvis was done which showed ruptured appendicitis without any fluid collection surrounding. Patient was transferred to [facility] for general surgery evaluation. Patient had low-grade fever and tachycardic. Patient underwent laparoscopic appendectomy. Patient was treated with IV antibiotics to Zosyn. Patient showed interval improvement, and she is tolerating diet, her abdominal pain control, no nausea vomiting and she is having bowel movements, which is soft. No other new complaints and taper that she can go home today Patient was also cleared for discharge by surgical team Problems and management plan were discussed with the patient and he verbalized understanding and acceptance Patient was found stable and can be discharged home however he needs follow-up as an outpatient. Patient was instructed to follow up with PCP Dr. Rodriguez at [facility] within one week and patient agrees. Also patient was started to follow-up with Dr. Abernathy and she agrees Gen: patient is a AAOx3, no distress CVS: S1-S2, RRR, no murmur Lungs: B/L CTA, no wheezing Abdomen: soft, no distention, no tenderness, positive bowel sounds. Abdominal wounds are dry, clean and closed Extremity: no leg edema or induration Time spent more than 35 minutes Plan - Discharge Summary Discharge Rx Participant: Yes New Discharge Prescriptions: New Amoxic-Pot Clav 875-125Mg [Augmentin 875-125] 1 tab PO Q12HR 10 Days #20 tab Pantoprazole Sodium [Protonix] 40 mg PO DAILY #10 tablet. Acetaminophen Tab [Tylenol] 650 mg PO Q6HR PRN tab PRN Reason: Fever And/ Or Pain Ondansetron HCl [Zofran] 4 mg PO Q8H PRN #8 tab PRN Reason: Nausea And Vomiting Discharge Medication List Acetaminophen Tab [Tylenol] 650 mg PO Q6HR PRN tab 02/10/20 [Rx] Amoxic-Pot Clav 875-125Mg [Augmentin 875-125] 1 tab PO Q12HR 10 Days #20 tab 02/10/20 [Rx] Ondansetron HCl [Zofran] 4 mg PO Q8H PRN #8 tab 02/10/20 [Rx] Pantoprazole Sodium [Protonix] 40 mg PO DAILY #10 tablet. 02/10/20 [Rx] Follow up Appointment(s)/Referral(s): Shimon Abernathy DO [Doctor of Osteopathic Medicine] - 02/17/20 1:00 pm Patient Instructions/Handouts: [facility] Drain Care (DC) Activity/Diet/Wound Care/Special Instructions: you may shower, but no tub baths or pools please let dr abernathy know right away if you have worsening pain, bright red blood or foul smelling drainage from you drain, fever, chills, inability to have a bowel movement, or any concerning symptoms. light activity, no heavy lifting Discharge Disposition: HOME SELF-CARE
--- NOTE | 2020-02-10 14:29 | PN ---
PROGRESS NOTE DATE OF SERVICE: 02/10/2020 REASON FOR FOLLOWUP: Perforated appendicitis. INTERVAL HISTORY: Patient is currently afebrile. Patient is breathing comfortably. Denies any chest pain or shortness of breath or cough. No nausea, no vomiting. No abdominal pain or diarrhea. PHYSICAL EXAMINATION: Blood pressure is 142/88 with a pulse of 70, temperature 98.3. She is 96% on room air. General description: The patient is a middle-aged female up in the chair in no distress. Respiratory system: Unlabored breathing, clear to auscultation anteriorly. Heart S1, S2. Regular rate and rhythm. Abdomen soft, no tenderness. LABS: No new labs have been obtained today. DIAGNOSTIC IMPRESSION AND PLAN: Patient with perforated appendicitis status post appendectomy and abdominal washout. Overall improvement on Zosyn. Finish therapy with oral Augmentin 875 b.i.d. for another 10 days and close outpatient followup. MMODL / IJN: [id number] /
== END 2020-02-10 15:45 | disposition home or self-care (01) | DRG 853 ==
LOC: 4SSUR 17:28 → 6PED 02-09 09:37
PROVIDERS: ADMIT Internal Medicine; ATTEND Internal Medicine
PROC: 3E1M38Z Irrigation of Peritoneal Cavity using Irrigating Substance, Percutaneous Approach (ICD-10-PCS; principal; 2020-02-06 18:47)
PROC: 0DTJ4ZZ Resection of Appendix, Percutaneous Endoscopic Approach (ICD-10-PCS; principal; 2020-02-06 18:47)
DX: A41.9 Sepsis, unspecified organism (principal); K35.33 Acute appendicitis with perforation, localized peritonitis, and gangrene, with abscess; Z68.42 Body mass index [BMI] 45.0-49.9, adult; E66.01 Morbid (severe) obesity due to excess calories; Z88.0 Allergy status to penicillin
CPT/HCPCS: 80048; 80053; 85025; 88304